=== PATIENT | female | born 1960 | race Caucasian/White ===

== ENCOUNTER 2020-08-29 11:46 | Emergency (ER) | payer OTHER, SELFPAY ==
[2020-08-29 11:50] VITALS: BP 158/85; PULSE 82; RESP 20; TEMP 36.4; O2SAT 100
--- NOTE | 2020-08-29 11:59 | ED.CHESTPAIN ---
HPI - Chest Pain General Chief Complaint: Chest Pain Stated Complaint: chest pain Time Seen by Provider: 08/29/20 11:55 Source: patient Mode of arrival: ambulatory Limitations: no limitations History of Present Illness HPI narrative: Renata Goldberg is a 60 yo female with a PMH of uncontrolled diabetes, obesity, HTN, smokes daily, comes to the express with 24-hour history of gastric reflux upon awakening, is nauseated and history of early cardiac deaths in her family Patient smokes 6 cigarettes a day had a recent A1c that showed her A1c had dropped but still was at 7.9. she does not check her blood sugar on a regular basis Related Data Home Medications Medication Instructions Recorded Confirmed atorvastatin 08/29/20 insulin lispro protamin-lispro SUBCUT 08/29/20 [Humalog Mix 75-25 KwikPen] linagliptin [Tradjenta] mg 08/29/20 sertraline mg 08/29/20 Allergies Allergy/AdvReac Type Severity Reaction Status Date / Time codeine Allergy Unknown Unknown Verified 08/29/20 13:15 Review of Systems Review of Systems: Narrative: CONSTITUTIONAL: Denies fever, chills, sweats. EYES: Denies visual changes, redness, discharge. ENT: Denies rhinorrhea, congestion, sore throat, otalgia. CARDIOVASCULAR epigastric pain, chest pain, palpitations, edema. RESPIRATORY: Denies dyspnea, wheezing, cough GASTROINTESTINAL: Denies abdominal pain, nausea, vomiting, diarrhea. GENITOURINARY: Denies dysuria, hematuria, abnormal discharge SKIN: Denies rash or itching. NEUROLOGIC: Denies numbness, or focal weakness. PSYCHIATRIC: Denies anxiety or depression. PMFSH Past Medical History Medical History Diabetes HTN (hypertension) Family History Family History Other Acute myocardial infarction Diabetes mellitus Heart disease Hypertension Social History Social History Smoking status: Current every day smoker Alcohol intake: never Comments My nurse Exam Narrative: Exam Narrative: GENERAL: This is a well-nourished, well-developed patient, in moderate distress. HEAD: normocephalic, atraumatic. EYES: Sclera clear/white. Vision is grossly intact. EARS: External ears normal,. Hearing grossly intact. NOSE: External nose normal without nasal discharge, nares without redness, no rhinorrhea. THROAT: Mucous membranes moist, posterior pharynx NECK: Neck supple, non-tender CARDIOVASCULAR: Regular rate and rhythm without murmurs, gallops, or rubs. RESPIRATORY: Clear to auscultation. Breath sounds equal bilaterally. No wheezes, rales, or rhonchi. GASTROINTESTINAL: Abdomen soft, non-tender, large pannus SKIN: warm, intact with no suspicious lesions or rash, good texture and turgor. NEURO: awake, alert, and oriented to person, place and time. There were no obvious focal neurologic abnormalities. Steady gait EXTREMITIES: Normal range of motion. BACK: Nontender without deformity Course Course Emergency Course: Patient comes to express care with 24-hour history of GERD-like symptoms and nausea has a family history of early , risk factors involved in uncontrolled diabetes hypertension and smoking Initial EKG showed nonspecific T wave abnormalities normal sinus rhythm otherwise with a rate of 76 no axis deviation Patient sent to [facility] for further evaluation Vital Signs Vital signs: Vital Signs Temperature 97.6 F 08/29/20 11:50 Pulse Rate 82 08/29/20 11:50 Respiratory Rate 20 08/29/20 11:50 Blood Pressure 158/85 H 08/29/20 11:50 Pulse Oximetry 100 08/29/20 11:50 Temperature 97.6 F 08/29/20 11:50 Pulse Rate 82 08/29/20 11:50 Respiratory Rate 20 08/29/20 11:50 Blood Pressure 158/85 H 08/29/20 11:50 Pulse Oximetry 100 08/29/20 11:50 MDM - Chest Pain Differential Diagnosis Differential diagnosis: Likely stable angina, un
--- NOTE | 2020-08-29 12:14 | ECG_ITS ---
Measurements Intervals [place] Rate: 78 P: 48 MS: 150 QRS: 11 QRSD: 89 T: 71 QT: 378 QTc: 431 Interpretive Statements SINUS RHYTHM BASELINE ARTIFACT- II, III, AVR, AVL, AVF, V6 NORMAL ECG Electronically Signed On 08-29-2020 15:09:23 [employer]AL INDU[employer] TEACHER by Oren Benitez D.O.
== END 2020-08-29 12:34 | disposition short-term general hospital (02) ==
PROVIDERS: Emergency Provider Nurse Practitioner; PCP Internal Medicine
DX: R07.89 Other chest pain (principal); E11.9 Type 2 diabetes mellitus without complications; I10 Essential (primary) hypertension; E66.9 Obesity, unspecified; F17.210 Nicotine dependence, cigarettes, uncomplicated
CPT/HCPCS: 93005; 99213; G0463

== ENCOUNTER 2020-08-29 12:52 | Emergency (ER) | payer OTHER, SELFPAY ==
[2020-08-29] VITALS (8 sets, daily range): BP systolic 157–183; BP diastolic 78–86; PULSE 66–78; RESP 18; O2SAT 95–99
--- NOTE | ~2020-08-29 | XR_ITS ---
EXAMINATION: XR chest 1V portable INDICATION: Chest pain TECHNIQUE: Portable AP chest at 1335 hours COMPARISON: 10/30/2015 FINDINGS: The lungs are free of acute opacities. There is no pleural effusion or pneumothorax. The ca rdiomediastinal silhouette is normal. IMPRESSION: 1. No acute cardiopulmonary abnormality. Reviewed, dictated and finalized at location A. [employer] TRUCK DRIVER
[2020-08-29 13:26] LABS: Basophils Absolute Auto 0.1 K/mm3 (0.0-0.1); Basophils Percent Auto 0.5 % (0.2-1.2); Eosinophils Absolute Auto 0.2 K/mm3 (0-0.3); Hematocrit 44.5 % (37.0-47.0); Hemoglobin 14.9 g/dL (12.0-15.0); Immature Granulocyte Absolute 0.04 K/mm3 (0.00-0.031); Immature Granulocyte Percent A 0.4 % (0-0.5); Lymphocytes Absolute Auto 2.49 K/mm3 (0.9-3.2); Lymphocytes Percent Auto 24.2 % (18.3-44.2); Mean Corpuscular HGB Conc 33.5 g/dl (32-36); Mean Corpuscular Hemoglobin 29.7 pg (26-34); Mean Corpuscular Volume 88.8 fl (80-100); Mean Platelet Volume 10.5 fl (7.4-10.4); Monocytes Absolute Auto 0.8 K/mm3 (0.1-0.6); Monocytes Percent Auto 7.7 % (2.6-8.5); Neutrophils Absolute Auto 6.7 K/mm3 (1.3-6.7); Neutrophils Percent Auto 65.2 % (45.5-73.1); Platelet Count Result 246 k/mm3 (150-375); Red Blood Count 5.01 M/mm3 (4.2-5.4); Red Cell Distribution Width 13.1 % (11.5-14.5); White Blood Count 10.3 K/mm3 (4.5-10.0)
[2020-08-29] MEDS: LIDOCAINE HCL 2% VISC SOLN 15 ML UDC 20 ML PO (13:26)
[2020-08-29] MEDS: MAG HYDROX/AL HYDROX/SIMETH 30 ML UDC PO (13:26)
[2020-08-29] MEDS: FAMOTIDINE 20 MG/2 ML VIAL IV PUSH (13:28)
[2020-08-29] MEDS: PANTOPRAZOLE SODIUM IV 40 MG VIAL IV PUSH (13:29)
[2020-08-29 13:37] LABS: Prothrombin Time 12.7 Seconds (11.1-14.7)
--- NOTE | 2020-08-29 13:37 | ECG_ITS ---
Measurements Intervals [place] Rate: 73 P: 40 [place]: 152 QRS: 11 QRSD: 82 T: 67 QT: 371 QTc: 410 Interpretive Statements SINUS RHYTHM EARLY PRECORDIAL R/S TRANSITION BORDERLINE ECG Electronically Signed On 08-29-2020 15:11:13 [employer]K [employer]OL[employer] INSTALLER by Oren Benitez D.O.
[2020-08-29 13:38] LABS: Partial Thromboplastin Time 25.4 SECONDS (22.3-36.8)
[2020-08-29 13:40] LABS: Alanine Aminotransferase 33 U/L (4-35); Albumin Level 4.3 g/dL (3.5-5.1); Alkaline Phosphatase 90 U/L (38-126); Anion Gap 8 mmol/L (8-16); Aspartate Amino Transferase 27 U/L (14-36); Bilirubin,Total 0.4 mg/dL (0.2-1.3); Blood Urea Nitrogen 10 mg/dL (7-17); Calcium 9.6 mg/dL (8.4-10.2); Carbon Dioxide 27 mmol/L (22-30); Chloride 104 mmol/L (98-107); Estimated Glomerular Filt Rate > 60; Glucose 171 mg/dL (65-105); Lipase 129 U/L (23-300); Potassium 4.1 mmol/L (3.4-5.0); Sodium 139 mmol/L (137-145)
[2020-08-29 13:53] LABS: NT Pro B Type Natriuretic Pept 84 PG/ML (5-100); Troponin I < 0.012 ng/mL (0.000-0.034)
--- NOTE | 2020-08-29 13:53 | ED.CHESTPAIN ---
HPI - Chest Pain General Chief Complaint: Chest Pain <CHRIS Philippe Last Filed: 08/29/20 17:32> Stated Complaint: chest pain <CHRIS Philippe Last Filed: 08/29/20 17:32> Time Seen by Provider: 08/29/20 12:59 <CHRIS Philippe Last Filed: 08/29/20 17:32> Source: patient <CHRIS Philippe Last Filed: 08/29/20 17:32> Mode of arrival: ambulatory <CHRIS Philippe Filed: 08/29/20 17:32> Limitations: no limitations <CHRIS Philippe Last Filed: 08/29/20 17:32> History of Present Illness HPI narrative: Patient is a 60-year-old female who presents to emergency department for evaluation of chest pain from urgent care at 10 AM this morning patient developed nausea GI upset with pain from the epigastrium up into the throat described as a burning pain. Patient notes that in the last week or more she has had 2 similar episodes that were self limited and resolved patient denies any chest pain does note she has slight heaviness of the chest denies URI symptoms or similar occurrence in the past and on arrival does not appear to be uncomfortable or in distress has not taken anything for her symptoms <CHRIS Philippe Last Filed: 08/29/20 17:32> Related Data Home Medications: Home Medications Medication Instructions Recorded Confirmed atorvastatin 08/29/20 insulin lispro protamin-lispro SUBCUT 08/29/20 [Humalog Mix 75-25 KwikPen] linagliptin [Tradjenta] mg 08/29/20 sertraline mg 08/29/20 <CHRIS Philippe Last Filed: 08/29/20 17:32> Allergies/Adverse Reactions: Allergies Allergy/AdvReac Type Severity Reaction Status Date / Time codeine Allergy Unknown Unknown Verified 08/29/20 13:15 <CHRIS Philippe Last Filed: 08/29/20 17:32> Review of Systems Review of Systems: All systems reviewed & are unremarkable except as noted in HPI and below <CHRIS Philippe Last Filed: 08/29/20 17:32> PMFSH Past Medical History Medical History: Medical History Diabetes HTN (hypertension) <Marvin Ahmadi PA-C - Last Filed: 08/29/20 17:32> Family History Family History: Family History Other Acute myocardial infarction Diabetes mellitus Heart disease Hypertension <Marvin Ahmadi PA-C - Last Filed: 08/29/20 17:32> Social History Social History: Social History Smoking status: Current every day smoker Alcohol intake: never <Marvin Ahmadi PA-C - Last Filed: 08/29/20 17:32> Exam Narrative: Exam Narrative: GENERAL: Well-appearing, obese, and in no acute distress. HEAD: Normocephalic, atraumatic. EYES: PERRLA and EOMI. ENT: Nares clear, no rhinorrhea or epistaxis. Mucous membranes moist. NECK: Supple. No adenopathy or masses. CHEST: Clear to auscultation. No respiratory distress. No wheezes rales or rhonchi HEART: Regular rate and rhythm. No murmur heard. Normal peripheral pulses. ABDOMEN: Soft, epigastric tenderness to palpation no rebound or guarding, nondistended, normal active bowel sounds. EXTREMITIES: Normal range of motion. No edema. SKIN: Warm, dry, no rash. NEURO: No focal deficits. Alert and oriented x3. PSYCH: Normal mood and affect. <Marvin Ahmadi PA-C - Last Filed: 08/29/20 17:32> Course Course Emergency Course: Patient in the room at this time will sign out AMA was advised to stay in hospital due to her high risk cardiac score patient 10 was advised to stay in hospital she knows she will follow with her primary care doctor and still would like to go home patient will also be given a PPI in case she is experiencing reflux symptoms patient currently is pain-free patient notes that she prefers to go home does not want to stay in hospital despite understanding that she
[2020-08-29 14:37] LABS: Add Urine Microscopic? NO; Appearance Urine Clear (Clear); Bilirubin Urine Negative (Negative); Blood Urine Negative (Negative); Color Urine Colorless (Yellow); Glucose Urine UA Negative (Negative); Ketones Urine Negative (Negative); Leukocyte Esterase Ur Negative LEU/UL (Negative); Nitrate Urine Negative (Negative); Protein Urine Negative (Negative); Specific Grav Ur 1.006 (1.001-1.035); Urobilinogen Urine Negative mg/dL (<2.0)
[2020-08-29] MEDS: NITROGLYCERIN OINTMENT 1 INCH DOSE 0.5 INCH TRANSDERM (15:24)
[2020-08-29 16:35] LABS: Troponin I < 0.012 ng/mL (0.000-0.034)
== END 2020-08-29 17:41 | disposition left against medical advice (07) ==
PROVIDERS: Emergency Medicine Emergency Medical Services; Emergency Provider General Practice; PCP Internal Medicine
DX: R07.9 Chest pain, unspecified (principal); E11.9 Type 2 diabetes mellitus without complications; I10 Essential (primary) hypertension; F17.200 Nicotine dependence, unspecified, uncomplicated; Z79.4 Long term (current) use of insulin; R94.31 Abnormal electrocardiogram [ECG] [EKG]
CPT/HCPCS: 36415; 71045; 80053; 81003; 83690; 83880; 84484; 85025; 85610; 85730; 93005; 96374; 96375; 99284; A9270; C9113

== ENCOUNTER 2021-01-03 11:02 | Outpatient (CLI) | payer OTHER, SELFPAY | END 2021-01-03 11:03 | disposition home or self-care (01) | LOC: ANHCOVIDVC 11:02 | PROVIDERS: PCP Internal Medicine | DX: Z23 Encounter for immunization (principal) | CPT/HCPCS: 0001A; 91300 ==

== ENCOUNTER 2021-01-24 09:53 | Outpatient (CLI) | payer OTHER, SELFPAY | END 2021-01-24 09:54 | disposition home or self-care (01) | LOC: ANHCOVIDVC 09:53 | PROVIDERS: PCP Internal Medicine | DX: Z23 Encounter for immunization (principal) | CPT/HCPCS: 0002A; 91300 ==

== ENCOUNTER 2024-01-26 06:57 | Inpatient (IN) | payer OTHER, SELFPAY ==
[2024-01-26] VITALS (31 sets, daily range): BP systolic 123–162; BP diastolic 50–84; PULSE 66–97; RESP 12–39; TEMP 36.2–36.8; O2SAT 96–100
--- NOTE | 2024-01-26 | ECHO_ITS ---
Patient Info Name: Renata Goldberg Age: 64 years : 1960 Gender: Female Ht: 66 in Wt: 249 lbs BSA: 2.35 m2 HR: 71 bpm BP: 123 / 64 mmHg Heart Rhythm: Sinus Rhythm Technical Quality: Good Exam Date: 01/26/2024 12:28 PM Exam Location: Echo Lab Patient Status: Inpatient Admit Date: 01/26/2024 Staff Ordering Physician: Evan Jones MD Information Systems Security Developer: Joanne Cee RDCS Attending Provider: Heriberto Whitlock MD Referring Physician: Karen LARSEN; Exam Type: CA echo dop color flow w con Study Info Indications - chest pain Complete two-dimensional, color flow and Doppler transthoracic echocardiogram is performed with contrast to opacify the left ventricle and to improve the deliniation of the left ventricle endocardial borders. Summary 1. Technically difficult study with limited views. Definity contrast enhancement administered. 2. Left ventricular chamber dimension is normal. 3. Left ventricular systolic function is hyperdynamic, estimated at >70%. 4. There is mildly increased left ventricular wall thickness. 5. The left ventricular diastolic function is grade II diastolic dysfunction. 6. The aortic valve is not well visualized. 7. There is no aortic valve stenosis. 8. There is no aortic valve regurgitation. 9. There is trace mitral valve regurgitation. 10. The mitral valve annulus is moderately calcified. 11. There is trace tricuspid valve regurgitation. 12. No pulmonary hypertension, estimated pulmonary arterial systolic pressure is 16 mmHg. Left Ventricle Left ventricular chamber dimension is normal. Left ventricular systolic function is hyperdynamic, estimated at >70%. There is mildly increased left ventricular wall thickness. The left ventricular diastolic function is grade II diastolic dysfunction. Technically difficult study with limited views. Definity contrast enhancement administered. Right Ventricle Right ventricular chamber dimension is normal. Right ventricular systolic function is normal. Left Atria Left atrial chamber dimension is normal. Right Atria Right atrial chamber dimension is normal. Aortic Valve The aortic valve is not well visualized. There is no aortic valve stenosis. There is no aortic valve regurgitation. Pulmonic Valve The pulmonic valve is not well visualized. Mitral Valve The mitral valve has thickened leaflets. There is trace mitral valve regurgitation. The mitral valve annulus is moderately calcified. Tricuspid Valve The tricuspid valve leaflets are normal. There is trace tricuspid valve regurgitation. No pulmonary hypertension, estimated pulmonary arterial systolic pressure is 16 mmHg. Pericardium/Pleural The pericardium appears normal. There is no pericardial effusion. Inferior Vena Cava Normal inferior vena cava with >50% collapse upon inspiration consistent with normal right atrial pressure, 5 mmHg. Aorta The aortic root size at the sinus of Valsalva is normal. There is mild aortic atherosclerosis. Left Ventricular Outflow Tract Name Value Normal LVOT 2D LVOT Diameter 2.14 cm LVOT Doppler LVOT Peak Gradient 5 mmHg LVOT Mean Gradient 3 mmHg LVOT VTI
--- NOTE | ~2024-01-26 | XR_ITS ---
XR chest 2V DATE: 01/26/2024 07:42 INDICATION: Chest discomfort, uneasiness. Nausea and vomiting. History of atrial fibrillation and [place]. TECHNIQUE: AP and lateral views COMPARISON: 08/29/2020 portable AP chest FINDINGS: Normal heart size. No hilar or mediastinal enlargement. No pulmonary infiltrate or consolid ation, pleural effusion or pulmonary vascular congestion or pneumothorax is detected. Degenerative spurring of the thoracic spine. IMPRESSION: No active cardiopulmonary disease Reviewed, dictated and finalized at location A.
--- NOTE | 2024-01-26 07:16 | ECG_ITS ---
Measurements Intervals [place] Rate: 91 P: 45 [place]: 141 QRS: 13 QRSD: 81 T: 81 QT: 355 QTc: 438 Interpretive Statements SINUS RHYTHM ST-T WAVE ABNORMALITY IN ANTEROLAT/HIGH LAT LEADS- CONSIDER ISCHEMIA ABNORMAL ECG COMPARED TO ECG 08/29/2020 13:01:47 ST-T WAVE ABNORMALITY NOW PRESENT Electronically Signed On 01-26-2024 7:40:43 CDT by Oren Benitez D.O.
[2024-01-26] MEDS: ASPIRIN 81 MG CHEWABLE TABLET 324 MG PO (07:42)
[2024-01-26 08:01] LABS: Basophils Absolute Auto 0.1 K/mm3 (0.0-0.1); Basophils Percent Auto 0.8 % (0.2-1.2); Eosinophils Absolute Auto 0.2 K/mm3 (0-0.3); Hematocrit 46.4 % (37.0-47.0); Immature Granulocyte Absolute 0.02 K/mm3 (0.00-0.031); Immature Granulocyte Percent A 0.3 % (0-0.5); Lymphocytes Absolute Auto 1.47 K/mm3 (0.9-3.2); Lymphocytes Percent Auto 18.9 % (18.3-44.2); Mean Corpuscular HGB Conc 32.3 g/dl (32-36); Mean Corpuscular Hemoglobin 29.8 pg (26-34); Mean Corpuscular Volume 92.1 fl (80-100); Mean Platelet Volume 10.5 fl (7.4-10.4); Monocytes Absolute Auto 0.7 K/mm3 (0.1-0.6); Monocytes Percent Auto 8.3 % (2.6-8.5); Neutrophils Absolute Auto 5.4 K/mm3 (1.3-6.7); Neutrophils Percent Auto 68.7 % (45.5-73.1); Platelet Count Result 210 k/mm3 (150-375); Red Blood Count 5.04 M/mm3 (4.2-5.4); Red Cell Distribution Width 12.8 % (11.5-14.5); White Blood Count 7.8 K/mm3 (4.5-10.0)
[2024-01-26 08:05] LABS: Alanine Aminotransferase 34 U/L (6-35); Albumin Level 4.2 g/dL (3.5-5.1); Alkaline Phosphatase 106 U/L (38-126); Anion Gap 5 mmol/L (4-12); Aspartate Amino Transferase 29 U/L (14-36); Bilirubin,Total 0.4 mg/dL (0.2-1.3); Blood Urea Nitrogen 16 mg/dL (7-17); Calcium 9.9 mg/dL (8.4-10.2); Carbon Dioxide 27 mmol/L (22-30); Chloride 106 mmol/L (98-107); Estimated CRCL calculation 92 ml/min; Estimated Glomerular Filt Rate > 60; Glucose 261 mg/dL (65-110); Lipase 180 U/L (23-300); Potassium 4.3 mmol/L (3.4-5.0); Sodium 138 mmol/L (137-145)
[2024-01-26 08:20] LABS: Troponin I 0.214 ng/mL (0.000-0.034)
[2024-01-26 08:30] LABS: Prothrombin Time 13.3 Seconds (11.1-14.7)
[2024-01-26 08:31] LABS: Partial Thromboplastin Time 26.4 Seconds (22.3-36.8)
[2024-01-26] MEDS: HYDROcodone/acetaminophen (*CRX) 5-325 MG TABLET 1 TAB PO ×2 (09:08→21:05)
[2024-01-26] MEDS: HEPARIN SODIUM 5,000 UNITS/ML VIAL 4000 UNITS IV PUSH ×2 (09:08→15:39)
[2024-01-26] MEDS: HEPARIN SOD/D5W 100 UNITS/ML 25,000 UNITS/250 ML BAG 10 UNITS IV CONT (09:15)
--- NOTE | 2024-01-26 09:32 | ECG_ITS ---
Measurements Intervals [place] Rate: 79 P: 35 [place]: 149 QRS: 13 QRSD: 82 T: 84 QT: 386 QTc: 444 Interpretive Statements SINUS RHYTHM LEFT VENTRICULAR HYPERTROPHY WITH ST-T CHANGE BORDERLINE ECG COMPARED TO ECG 01/26/2024 07:04:49 NO SIGNIFICANT CHANGES Electronically Signed On 01-26-2024 16:37:33 CDT by Oren Benitez D.O.
[2024-01-26 10:44] LABS: Troponin I 0.812 ng/mL (0.000-0.034)
--- NOTE | 2024-01-26 11:39 | PM.CNCAR ---
Assessment and Plan Assessment and plan (1) SVT (supraventricular tachycardia): Code(s): I47.10 - Supraventricular tachycardia, unspecified Status: Acute Assessment and Plan: Documentation of arrhythmia presentation is not available unfortunately. Given description of rapid arrhythmia terminated with Valsalva 249 beats per minute SVT highly likely. Unfortunately this cannot be confirmed at present but patient reports a longstanding history of intermittent SVT as well terminated with adenosine. Currently in sinus rhythm. Initiate Toprol XL 25 mg daily for suppression. Discussed referral to electrophysiology as an outpatient as he services are not available at this institution to consider ablation and antiarrhythmic therapy as appropriate. Check TSH. Electrolytes stable. -2D echocardiogram to assess LV function, wall motion abnormalities, valve pathology, pulmonary pressures in chamber size. Recommendation to follow after review. -apnea link overnight to screen for obstructive sleep apnea which may increased risk for recurrence and difficulty management. -continue telemetry. (2) NSTEMI (non-ST elevated myocardial infarction): Code(s): I21.4 - Non-ST elevation (NSTEMI) myocardial infarction Status: Acute Assessment and Plan: Patient presents with chest discomfort however setting of 1 hour sustained very rapid presumed SVT 249 beats per minute with mild troponin elevation with upward trend and ECG with ischemic changes with diffuse ST depressions. We discussed at length pathophysiology involved and that her symptoms and clinical presentation may all be related to demand ischemia due to sustained very rapid arrhythmia versus underlying obstructive CAD particularly given risk factors of hypertension, family history, and hyperlipidemia along with tobacco abuse. Discussed it is very difficult to discern which I agree contributor as it is also possible she could have had acute coronary event which exacerbated tachyarrhythmia but was not precipitating issue. Nonetheless, I recommend management for both. Resume atorvastatin 40 mg at bedtime, aspirin 81 mg daily and continue heparin infusion. We will review 2D echocardiogram available. Further recommendation to follow based on troponin trend, patient symptoms/clinical status, ECG, and echocardiogram results. We discussed ischemic workup invasive versus noninvasive. Recommendation to follow in this regard. All questions answered to her satisfaction. She was in agreement with the plan of care. (3) HTN (hypertension): Code(s): I10 - Essential (primary) hypertension Status: Acute Assessment and Plan: BP significantly elevated. Add losartan 25 mg daily. Goal BP less than 130/80 mm Hg. (4) Diabetes: Code(s): E11.9 - Type 2 diabetes mellitus without complications Status: Acute Assessment and Plan: Management per primary service. (5) Tobacco abuse: Code(s): Z72.0 - Tobacco use Status: Acute Assessment and Plan: Smoking cessation counseling performed. Patient verbalized understanding and agreed. History of Present Illness History of Present Illness Consult date/time: Date of service: 01/26/24 11:39 Requesting physician: Heriberto Whitlock MD Consult reason: chest pain (Elevated troponin) and Other (SVT) Reason For Visit: SVT/ Elevated Trop/ST changes Narrative: Patient is a very pleasant 64-year-old female with past medical history significant for presumed recurrent SVT, depression, type 2 diabetes mellitus, hyperlipidemia, tobacco abuse, obesity who presented emergency department after waking with a rapid heart rate chest discomfort, nausea and general sense of not feeling well. Patient states she could feel her heart fluttering beating quickly and began to present to the ER with family then turned back to the house so she had episode of diarrhea and felt nauseous and vomited proximally 4 times. They the
--- NOTE | 2024-01-26 11:57 | ADMGEN ---
This patient, Renata Goldberg, was admitted to IMU Room 209-. Patient/family oriented to hospital policies and general routines including ID bracelet, bed and alarms, visiting hours, pain management, procedures, bathroom and other care routines, personal items, smoking policy, room service/diet, and visiting hours. Information on how to activate the Rapid Response Team has been discussed. Patient/Family are encouraged to report perceived risks to care and to ask questions if they do not understand what they are told or what they should do.
[2024-01-26 12:16] LABS: Glucose Point of Care 214 mg/dl (65-105)
[2024-01-26] MEDS: PERFLUTREN LIPID MICROSPHERES 1.5 ML VIAL DILUTED TO 10 ML TOTAL VOLUME IV PUSH (12:30)
--- NOTE | 2024-01-26 13:15 | ECG_ITS ---
Measurements Intervals [place] Rate: 69 P: 44 [place]: 151 QRS: 17 QRSD: 82 T: 105 QT: 394 QTc: 422 Interpretive Statements SINUS RHYTHM LEFT VENTRICULAR HYPERTROPHY WITH ST-T CHANGE BORDERLINE ST ABNORMALITY- ANTERIOR LEADS BORDERLINE ECG COMPARED TO ECG 01/26/2024 09:56:44 NO SIGNIFICANT CHANGES Electronically Signed On 01-26-2024 16:57:01 CDT by Oren Benitez D.O.
--- NOTE | 2024-01-26 13:28 | PM.IMHP ---
H&P: HPI History of Present Illness Date/Time: 01/26/24 13:28 Chief Complaint: Chest Pain, N/V Narrative: 64 y/o F presents here with chest pain, nausea, and vomiting with PMH of intermittent SVT, DM, depression, tobacco use, HLD, obesity, and HTN. Patient presents here with chest pain, nausea, vomiting, and GERD-like symptoms. Patient woke this morning around [id number] with palpitations/heart racing. Experienced associated chest discomfort, nausea, diarrhea, and general malaise. Patient initially was coming by private vehicle but had to turn around and go back home due to diarrhea and vomiting. EMS was then called. Upon their arrival, patient's HR was found to be in the 240's and appeared as SVT on their monitor. EMS helped patient to perform a Valsalva maneuver (bearing down) and patient was able to convert back in NSR. Symptoms lasted for approximately 1 hour in total. Patient has history of SVT with 1st episode when she was 20 years old and last long episode was 15 years ago. Had 5 year stretch where it was occurring yearly and had to be seen in the ED where she was treated with adenosine IV. Has had some short lived episodes of palpitations, would last more or less around 30 seconds, and would resolve spontaneously. Patient does not follow with a lodge attendant. Caffeine intake is approximated around 4 cups of coffee daily and 1 can of diet caffeinated soda. No prescription stimulants. No drug use. Currently reporting fatigue, typically feels tired after her SVT episodes and from getting up so early. No recurrent or current chest pain, SOB, or pain that is a deviation from her baseline. Initial VS at presentation: 97.1 F, HR 92, RR 16, 147/79, and 98% on RA. ED workup showed: no leukocytosis, no anemia, creatinine 0.7, and glucose 261. CXR showed no active cardiopulmonary disease. EKG showed sinus rhythm, ST T-wave abnormality in anterolateral/high rates consider ischemia. When compared to EKG done on 08/29/2020, ST-T-wave abnormalities not present. Review of Systems Review of Systems: All systems reviewed & are unremarkable except as noted in HPI and below PMFSH Past Medical History Medical History (Updated 01/26/24 @ 16:[address] MD) Diabetes HTN (hypertension) not currently on medications Insomnia Major depressive disorder, single episode, unspecified Polyosteoarthritis, unspecified SVT (supraventricular tachycardia) Tobacco abuse Vitamin D deficiency Family History Family History Other Acute myocardial infarction Diabetes mellitus Heart disease Hypertension Social History Social History Smoking status: Current every day smoker Alcohol intake: never Substance use: never Do You Feel Safe in your Home?: Yes Lack of Transportation: No Lack of Food: Never True Current Housing: I Have Housing Concerned About Future Housing: No Difficulty Paying Gas/Electric Bills: No Difficulty Paying for Meds: No Currently Unemployed: No Education: High School Diploma/GED Difficulty w/ Childcare or Family Care: No Spiritual care concerns: No Meds Home Medications and Allergies Home Medications Medication Instructions Recorded Confirmed Type insulin lispro protamine-lispro 54 unit subcut BID 08/29/20 01/26/24 History 100 unit/mL (75-25) subcutaneous pen (Humalog Mix 75-25 KwikPen) sertraline 100 mg tablet 150 mg PO DAILY 08/29/20 01/26/24 History atorvastatin 40 mg tablet 40 mg PO DAILY 01/26/24 01/26/24 History celecoxib 200 mg capsule 200 mg PO DAILY 01/26/24 01/26/24 History semaglutide 0.25 mg or 0.5 mg (2 0.5 mg subcut WEEKLY 01/26/24 01/26/24 History mg/3 mL) subcutaneous pen injector (Ozempic) tramadol 50 mg tablet 50 mg PO Q6H PRN Pain 01/26/24 01/26/24 History Allergies Allergy/AdvReac Type Severity Reaction Status Date / Time chinedu Brumfield
[2024-01-26 13:39] LABS: Prothrombin Time 13.7 Seconds (11.1-14.7)
[2024-01-26 13:40] LABS: Partial Thromboplastin Time 46.6 Seconds (22.3-36.8)
--- NOTE | 2024-01-26 13:46 | IVDEFINITY ---
Prior to administration of IV Definity the patient was educated on the risks and benefits of the imaging enhancing agent including potential adverse side effects. The patient verbalized understanding. Allergies were verified. No exclusion criteria were identified and at least one of the following inclusion criteria were met: 1) physician request, 2) patient technically difficult to image (per the [place] [employer]ocardi[employer] guidelines of two or more segments not discernable within the apical view), or 3) questionable left ventricular function. ?
[2024-01-26] MEDS: METOPROLOL SUCCINATE EXT REL 25 MG TABCR PO (14:24)
[2024-01-26 15:24] LABS: Partial Thromboplastin Time 48.5 Seconds (22.3-36.8)
--- NOTE | 2024-01-26 15:56 | ED.CHESTPAIN ---
HPI - Chest Pain General Chief Complaint: Chest Pain Stated Complaint: n/v, chest pain Time Seen by Provider: 01/26/24 07:43 History of Present Illness HPI narrative: Patient presents here after converted episode of SVT, EMS had been called to her home after she had nausea vomiting, and they found her with heart rate over 200, which did thankfully convert with vagal maneuvers. Patient at this time is denying complaints she states that she stayed get them all the time 20 years ago, which had required multiple interventions including cardioversion and medications, and she will have a funny sensation almost daily or every other day but usually it goes away except for today. Related Data Home Medications Medication Instructions Recorded Confirmed insulin lispro protamine-lispro subcut 08/29/20 100 unit/mL (75-25) subcutaneous pen (Humalog Mix 75-25 KwikPen) sertraline 100 mg tablet 150 mg PO DAILY 08/29/20 01/26/24 atorvastatin 40 mg tablet 40 mg PO DAILY 01/26/24 01/26/24 celecoxib 200 mg capsule 200 mg PO DAILY 01/26/24 01/26/24 semaglutide 0.25 mg or 0.5 mg (2 0.5 mg subcut WEEKLY 01/26/24 01/26/24 mg/3 mL) subcutaneous pen injector (Ozempic) tramadol 50 mg tablet 50 mg PO Q6H PRN Pain 01/26/24 01/26/24 Allergies Allergy/AdvReac Type Severity Reaction Status Date / Time codeine Allergy Unknown Unknown Verified 01/26/24 07:13 Review of Systems Review of Systems: All systems reviewed & are unremarkable except as noted in HPI and below PMFSH Past Medical History Medical History (Updated 01/26/24 @ 16:[address] MD) Diabetes HTN (hypertension) not currently on medications Insomnia Major depressive disorder, single episode, unspecified Polyosteoarthritis, unspecified SVT (supraventricular tachycardia) Tobacco abuse Vitamin D deficiency Family History Family History Other Acute myocardial infarction Diabetes mellitus Heart disease Hypertension Social History Social History Smoking status: Current every day smoker Alcohol intake: never Substance use: never Do You Feel Safe in your Home?: Yes Lack of Transportation: No Lack of Food: Never True Current Housing: I Have Housing Concerned About Future Housing: No Difficulty Paying Gas/Electric Bills: No Difficulty Paying for Meds: No Currently Unemployed: No Education: High School Diploma/GED Difficulty w/ Childcare or Family Care: No Spiritual care concerns: No Exam Narrative: EXAMINATION OF ORGAN SYSTEMS/BODY AREAS: Constitutional: Vital signs per nursing GENERAL:[No acute distress, non-toxic appearing.] HEAD: Normal with no signs of head trauma. EYES: EOMI, conjunctiva normal ENT: Hearing grossly intact LUNGS: Nonlabored breathing. HEART: [Regular rate and rhythm] ABD: [Soft], [nontender to palpation] EXT: Normal range of motion SKIN: [No rashes or lesions.] NEURO: [Alert and oriented x 3. No gross focal sensory or strength deficits.] PSYCH: Normal affect Course Vital Signs Vital signs: Vital Signs Temperature 97.1 F L 01/26/24 06:59 Pulse Rate 92 01/26/24 06:59 Respiratory Rate 16 01/26/24 06:59 Blood Pressure 147/79 H 01/26/24 06:59 Pulse Oximetry 98 01/26/24 06:59 Oxygen Delivery Room Air 01/26/24 06:59 Temperature 97.8 F 01/26/24 16:00 Pulse Rate 78 01/26/24 16:00 Respiratory Rate 16 01/26/24 16:00 Blood Pressure 135/63 01/26/24 16:00 Pulse Oximetry 97 01/26/24 16:00 Oxygen Delivery Room Air 01/26/24 12:00 MDM - Chest Pain MDM Narrative Medical decision making narrative: 1) Differential diagnosis: SVT, ACS, afib with rvr 2) Comorbidities: DM, HTN, prior SVT 3) External notes reviewed: prior H&P 4) History sources independently obtained from: EMS, pt's daughter 5) Discussion of management with: rn social services,
[2024-01-26 15:59] LABS: Glucose Point of Care 321 mg/dl (65-105)
[2024-01-26 16:44] LABS: Glucose Point of Care 281 mg/dl (65-105)
[2024-01-26] MEDS: INSULIN ASPART (*BKC) 100 UNITS/ML SUB-Q ×2 (17:28→20:06)
[2024-01-26 20:06] LABS: Glucose Point of Care 242 mg/dl (65-105)
[2024-01-26] MEDS: MELATONIN 3 MG TABLET PO (21:05)
[2024-01-26 22:08] LABS: Partial Thromboplastin Time 76.2 Seconds (22.3-36.8)
[2024-01-26 22:57] LABS: Influenza A QL RT-PCR Negative (Negative); Influenza B QL RT-PCR Negative (Negative); RSV RNA, RT-PCR Negative (Negative); SARS-CoV-2 RNA PCR Negative (Negative)
[2024-01-27] VITALS (16 sets, daily range): BP systolic 120–146; BP diastolic 48–79; PULSE 64–86; RESP 12–20; TEMP 36.4–36.8; O2SAT 95–100
[2024-01-27 04:49] LABS: Basophils Absolute Auto 0.1 K/mm3 (0.0-0.1); Basophils Percent Auto 0.7 % (0.2-1.2); Eosinophils Absolute Auto 0.3 K/mm3 (0-0.3); Eosinophils Percent Auto 3.2 % (0-4.4); Hematocrit 42.6 % (37.0-47.0); Hemoglobin 13.7 g/dL (12.0-15.0); Immature Granulocyte Absolute 0.03 K/mm3 (0.00-0.031); Immature Granulocyte Percent A 0.3 % (0-0.5); Lymphocytes Absolute Auto 2.97 K/mm3 (0.9-3.2); Lymphocytes Percent Auto 34.2 % (18.3-44.2); Mean Corpuscular HGB Conc 32.2 g/dl (32-36); Mean Corpuscular Volume 93.2 fl (80-100); Mean Platelet Volume 11.1 fl (7.4-10.4); Monocytes Absolute Auto 0.8 K/mm3 (0.1-0.6); Monocytes Percent Auto 8.7 % (2.6-8.5); Neutrophils Absolute Auto 4.6 K/mm3 (1.3-6.7); Neutrophils Percent Auto 52.9 % (45.5-73.1); Platelet Count Result 194 k/mm3 (150-375); Red Blood Count 4.57 M/mm3 (4.2-5.4); Red Cell Distribution Width 12.8 % (11.5-14.5); White Blood Count 8.7 K/mm3 (4.5-10.0)
[2024-01-27 05:02] LABS: Partial Thromboplastin Time 64.5 Seconds (22.3-36.8)
[2024-01-27 05:04] LABS: Alanine Aminotransferase 30 U/L (6-35); Albumin Level 3.8 g/dL (3.5-5.1); Alkaline Phosphatase 84 U/L (38-126); Anion Gap 4 mmol/L (4-12); Aspartate Amino Transferase 28 U/L (14-36); Bilirubin,Total 0.5 mg/dL (0.2-1.3); Blood Urea Nitrogen 15 mg/dL (7-17); Calcium 9.5 mg/dL (8.4-10.2); Carbon Dioxide 28 mmol/L (22-30); Chloride 106 mmol/L (98-107); Cholesterol 172 mg/dL (0-200); Estimated CRCL calculation 92 ml/min; Estimated Glomerular Filt Rate > 60; Glucose 213 mg/dL (65-110); HDL Direct 60 mg/dL; Sodium 138 mmol/L (137-145); Triglycerides 149 mg/dL (<150)
[2024-01-27] MEDS: HEPARIN SODIUM 5,000 UNITS/ML VIAL 3000 UNITS IV PUSH ×2 (05:13→19:30)
[2024-01-27 05:15] LABS: LDL Cholesterol Direct 91 mg/dL
[2024-01-27] MEDS: HEPARIN SOD/D5W 100 UNITS/ML 25,000 UNITS/250 ML BAG 15 UNITS IV CONT ×2 (05:17→22:45)
[2024-01-27 05:18] LABS: Hemoglobin A1C 8.8 % (<5.7)
[2024-01-27] MEDS: HYDROcodone/acetaminophen (*CRX) 5-325 MG TABLET 1 TAB PO ×2 (06:12→20:50)
--- NOTE | 2024-01-27 08:00 | ECG_ITS ---
Measurements Intervals Outlook Rate: 68 P: 40 MO: 152 QRS: 20 QRSD: 82 T: 77 QT: 393 QTc: 419 Interpretive Statements SINUS RHYTHM NONSPECIFIC ST-T WAVE ABNORMALITY- HIGH LATERAL LEADS BASELINE ARTIFACT- I, III, AVL BORDERLINE ECG COMPARED TO ECG 01/26/2024 13:24:49 NO SIGNIFICANT CHANGES Electronically Signed On 01-27-2024 10:57:08 CDT by Oren Benitez D.O.
[2024-01-27 08:16] LABS: Glucose Point of Care 240 mg/dl (65-105)
[2024-01-27] MEDS: METOPROLOL SUCCINATE EXT REL 25 MG TABCR PO (08:55)
[2024-01-27] MEDS: PANTOPRAZOLE 40 MG TABLET PO (08:55)
[2024-01-27] MEDS: SERTRALINE HCL 50 MG TABLET 150 MG PO (08:55)
[2024-01-27] MEDS: ASPIRIN 81 MG ENTERIC TABLET PO (08:55)
[2024-01-27] MEDS: ATORVASTATIN 40 MG TABLET PO (08:55)
[2024-01-27] MEDS: INSULIN ASPART (*BKC) 100 UNITS/ML SUB-Q ×4 (08:56→20:47)
--- NOTE | 2024-01-27 10:34 | PM.IMPN ---
Progress Note: A&P Assessment and Plan (1) SVT (supraventricular tachycardia): Code(s): I47.10 - Supraventricular tachycardia, unspecified Status: Acute Assessment and Plan: - EKG, initial: Sinus rhythm, ST-T-wave abnormality in anterolateral leads and high lateral leads consider ischemia, abnormal EKG. When compared to EKG done on 08/29/2020, ST-T-wave abnormality now present. - cardiology consulted, Karen PORTER Provided the following recs: Start metoprolol XL 25 mg daily for suppression Referral for electrophysiology outpatient for possible ablation or antiarrhythmic therapy Check TSH Check echo ApneaLink overnight to screen for DEEDEE Continue telemetry - started on heparin gtt - echo, 01/26 LV normal dimension, mildly increased ventricular wall thickness, systolic function hyperdynamic, estimated EF >70% LV diastolic dysfunction grade 2 AV not well visualized No AV stenosis or regurgitation Trace MV regurgitation and annulus moderately calcified Trace TV regurgitation No pulmonary hypertension - no previous stress test on file - telemetry monitoring (2) NSTEMI (non-ST elevated myocardial infarction): Code(s): I21.4 - Non-ST elevation (NSTEMI) myocardial infarction Status: Acute Assessment and Plan: - EKG, initial: Sinus rhythm, ST-T-wave abnormality in anterolateral leads and high lateral leads consider ischemia, abnormal EKG. When compared to EKG done on 08/29/2020, ST-T-wave abnormality now present. - EKG, repeat (1): Sinus rhythm, LV hypertrophy with ST-T change. When compared to EKG done earlier today, there are no significant changes. - EKG, repeat (2): Sinus rhythm, LV hypertrophy with ST-T change, borderline ST abnormality anterior leads. - CXR: No active cardiopulmonary disease - Troponin: 0.214 -> 0.812 -> 1.720, repeat in AM - ASA given in ED, started on heparin - SL nitro PRN - cardiology consulted, Karen PORTER Provided the following recs: Demand ischemia verses underlying obstructive CAD Continue management for SVT and CAD Resume atorvastatin 40 mg, ASA daily, continue heparin gtt Review echo Further recommendations based off of troponin trend, patient's symptoms, EKG, and echo - started on heparin gtt - lipid panel ordered, continued atorvastatin 40 mg - see echo results above - NPO at midnight - telemetry monitoring (3) Diabetes: Code(s): E11.9 - Type 2 diabetes mellitus without complications Status: Acute Assessment and Plan: - glucose has been elevated, unable to start lispro until later in the evening due to patient not knowing dose that she actually takes home - hypoglycemia protocol - POC blood glucose ACHS - home medication - hold Ozempic (NF, takes on Mon), patient does not know lispro dose. states she turns it (the dial) and shoots it . will resume as prescribed, lispro 54 units b.i.d. - correct regimen ordered - high dose TIDWM and HS. starting steroids. - A1C ordered, no previous on file - music educator consulted - had lengthy discussion about importance of adherence to medications and how they are prescribed, discussed risks of uncontrolled blood sugars (4) Tobacco abuse: Code(s): Z72.0 - Tobacco use Status: Acute Assessment and Plan: - everyday smoker - counseled on cessation, in state of preparation/determination. Would like to attempt cessation. - will hold on starting nicotine patches until further cardiac workup is completed Plan Patient here with recurrent SVT, able to Valsalva back into NSR. Cardiology consulted and provider recommendations, see note. Uptrending troponin has unclear etiology at this time, ischemia vs CAD. No recurrent chest pain or palpitations. Heparin infusing. Diet: heart healthy GI Prophylaxis: Not currently indicated DVT Prophylaxis: heparin gtt Lines: peripheral Code Status: Full Code Subjective Date/time seen: 01/27/24 10:34 Objec
--- NOTE | 2024-01-27 10:36 | P.PNIM_ITS ---
Progress Note: A&P Assessment and Plan (1) NSTEMI (non-ST elevated myocardial infarction): Code(s): I21.4 - Non-ST elevation (NSTEMI) myocardial infarction Status: Acute (2) SVT (supraventricular tachycardia): Code(s): I47.10 - Supraventricular tachycardia, unspecified Status: Acute (3) HTN (hypertension): Code(s): I10 - Essential (primary) hypertension Status: Acute (4) Diabetes: Code(s): E11.9 - Type 2 diabetes mellitus without complications Status: Acute (5) Tobacco abuse: Code(s): Z72.0 - Tobacco use Status: Acute Plan (1) SVT (supraventricular tachycardia): ?Code(s): I47.10 - Supraventricular tachycardia, unspecified ?Status:?Acute ?Assessment and Plan: - EKG, initial:? Sinus rhythm, ST-T-wave abnormality in anterolateral leads and high lateral leads consider ischemia, abnormal EKG.? When compared to EKG done on 08/29/2020, ST-T-wave abnormality now present. - cardiology consulted, Karen ASTUDILLO. Provided the following recs: Start metoprolol XL 25 mg daily for suppression Referral for electrophysiology outpatient for possible ablation or antiarrhythmic therapy Check TSH Check echo ApneaLink overnight to screen for DEEDEE Continue telemetry - started on heparin gtt - echo, 01/26 LV normal dimension, mildly increased ventricular wall thickness, systolic function hyperdynamic, estimated EF >70% LV diastolic dysfunction grade 2 AV not well visualized No AV stenosis or regurgitation Trace MV regurgitation and annulus moderately calcified Trace TV regurgitation No pulmonary hypertension - no previous stress test on file - telemetry monitoring (2) NSTEMI (non-ST elevated myocardial infarction): ?Code(s): I21.4 - Non-ST elevation (NSTEMI) myocardial infarction ?Status:?Acute ?Assessment and Plan: - EKG, initial:? Sinus rhythm, ST-T-wave abnormality in anterolateral leads and high lateral leads consider ischemia, abnormal EKG.? When compared to EKG done on 08/29/2020, ST-T-wave abnormality now present. - EKG, repeat (1):? Sinus rhythm, LV hypertrophy with ST-T change.? When compared to EKG done earlier today, there are no significant changes. - EKG, repeat (2):? Sinus rhythm, LV hypertrophy with ST-T change, borderline ST abnormality anterior leads. - CXR:? No active cardiopulmonary disease - Troponin: 0.214 -> 0.812 -> 1.720, repeat in AM - ASA given in ED, started on heparin - SL nitro PRN - cardiology consulted, Karen ASTUDILLO. Provided the following recs: Demand ischemia verses underlying obstructive CAD Continue management for SVT and CAD Resume atorvastatin 40 mg, ASA daily, continue heparin gtt Review echo Further recommendations based off of troponin trend, patient's symptoms, EKG, and echo - started on heparin gtt - lipid panel ordered, continued atorvastatin 40 mg - see echo results above - NPO at midnight - telemetry monitoring echo revealed ? 1. Technically difficult study with limited views.? Definity contrast enhancement administered. ? 2. Left ventricular chamber dimension is normal. ? 3. Left ventricular systolic function is hyperdynamic, estimated at >70%. ? 4. There is mildly increased left ventricular wall thickness. ? 5. The left ventricular diastolic function is grade II diastolic dysfunction. ? 6. The aortic valve is not well visualized. ? 7. There is no aortic valve stenosis. ? 8. There is no aortic valve regurgitation. ? 9. There is trace mitral valve regurgitation. ? 10. The mitral valv
[2024-01-27 11:27] LABS: Partial Thromboplastin Time 119.7 Seconds (22.3-36.8)
--- NOTE | 2024-01-27 11:44 | PM.PNCARD ---
Progress Note: A&P Assessment and Plan (1) NSTEMI (non-ST elevated myocardial infarction): Code(s): I21.4 - Non-ST elevation (NSTEMI) myocardial infarction Status: Acute Assessment and Plan: Patient presents with chest discomfort however setting of 1 hour sustained very rapid presumed SVT 249 beats per minute with mild troponin elevation with upward trend and ECG with ischemic changes with diffuse ST depressions. We discussed at length pathophysiology involved and that her symptoms and clinical presentation may all be related to demand ischemia due to sustained very rapid arrhythmia versus underlying obstructive CAD particularly given risk factors of hypertension, family history, and hyperlipidemia along with tobacco abuse. Discussed it is very difficult to discern which I agree contributor as it is also possible she could have had acute coronary event which exacerbated tachyarrhythmia but was not precipitating issue. Nonetheless, I recommend management for both. Resume atorvastatin 40 mg at bedtime, aspirin 81 mg daily and continue heparin infusion. NPO after midnight permissive angiography for delineation of coronary anatomy given significant troponin elevation somewhat out of proportion that would be expected secondary to demand ischemia in the absence of underlying CAD. Patient also reports preceding unexplained fatigue prior to admission raising concern for obstructive CAD. Discussed at length. Discussed risks, benefits and alternatives including but not limited to stroke, bleeding, myocardial infarction, , and or infection. She agrees to proceed. Further recommendation to follow. Discussed potential intervention and/or stent implantation. (2) SVT (supraventricular tachycardia): Code(s): I47.10 - Supraventricular tachycardia, unspecified Status: Acute Assessment and Plan: Documentation of arrhythmia presentation is not available unfortunately. Given description of rapid arrhythmia terminated with Valsalva 249 beats per minute SVT highly likely. Unfortunately this cannot be confirmed at present but patient reports a longstanding history of intermittent SVT as well terminated with adenosine. Currently in sinus rhythm. Initiate Toprol XL 25 mg daily for suppression. Discussed referral to electrophysiology as an outpatient as he services are not available at this institution to consider ablation and antiarrhythmic therapy as appropriate. Check TSH. Electrolytes stable. -2D echocardiogram to assess LV function, wall motion abnormalities, valve pathology, pulmonary pressures in chamber size. Recommendation to follow after review. -apnea link overnight to screen for obstructive sleep apnea which may increased risk for recurrence and difficulty management. -continue telemetry. (3) HTN (hypertension): Code(s): I10 - Essential (primary) hypertension Status: Acute Assessment and Plan: BP significantly elevated. Add losartan 25 mg daily. Goal BP less than 130/80 mm Hg. (4) Diabetes: Code(s): E11.9 - Type 2 diabetes mellitus without complications Status: Acute Assessment and Plan: Management per primary service. (5) Tobacco abuse: Code(s): Z72.0 - Tobacco use Status: Acute Assessment and Plan: Smoking cessation counseling performed. Patient verbalized understanding and agreed. Subjective Date/time seen: Date of service: 01/27/24 11:44 Interval history: Follow-up for SVT, elevated troponin, chest pain Patient feels better this morning. Still somewhat fatigued but no chest pain, palpitation. No recurrent SVT on telemetry overnight. Breathing stable. Review of Systems Review of Systems: Remainder of the review of systems is otherwise negative aside from that noted in the HPI. All systems reviewed & are unremarkable except as noted in HPI and below Constitutional: Constitutional: Reports as per HPI and Reports no additional const
[2024-01-27 11:48] LABS: Glucose Point of Care 257 mg/dl (65-105)
[2024-01-27] MEDS: INSULIN HUMAN ISOPHAN/REGULAR 70/30 (*BKC) 100 UNITS/ML 43 UNITS SUB-Q ×2 (12:30→17:39)
[2024-01-27 16:30] LABS: Glucose Point of Care 291 mg/dl (65-105)
[2024-01-27 19:10] LABS: Partial Thromboplastin Time 69.3 Seconds (22.3-36.8)
[2024-01-27 20:50] LABS: Glucose Point of Care 259 mg/dl (65-105)
[2024-01-27] MEDS: MELATONIN 3 MG TABLET PO (20:50)
[2024-01-27] MEDS: INSULIN GLARGINE (*BKC) 100 UNITS/ML 23 UNITS SUB-Q (20:53)
[2024-01-27] MEDS: ONDANSETRON INJ 4 MG/2 ML VIAL IV PUSH (23:18)
[2024-01-28] VITALS (43 sets, daily range): BP systolic 82–163; BP diastolic 40–98; PULSE 60–73; RESP 12–20; TEMP 36–36.8; O2SAT 93–100; BMI 40.1
[2024-01-28 03:16] LABS: Partial Thromboplastin Time 185.2 Seconds (22.3-36.8)
[2024-01-28] MEDS: HYDROcodone/acetaminophen (*CRX) 5-325 MG TABLET 1 TAB PO ×3 (04:31→21:06)
[2024-01-28 08:19] LABS: Glucose Point of Care 101 mg/dl (65-105); Glucose Point of Care 103 mg/dl (65-105)
[2024-01-28] MEDS: METOPROLOL SUCCINATE EXT REL 25 MG TABCR PO (08:19)
[2024-01-28] MEDS: SERTRALINE HCL 50 MG TABLET 150 MG PO (08:19)
[2024-01-28] MEDS: ATORVASTATIN 40 MG TABLET PO (08:20)
[2024-01-28] MEDS: PANTOPRAZOLE 40 MG TABLET PO (08:20)
[2024-01-28] MEDS: ASPIRIN 81 MG ENTERIC TABLET PO (08:20)
--- NOTE | 2024-01-28 09:38 | PM.IMPN ---
Progress Note: A&P Assessment and Plan (1) NSTEMI (non-ST elevated myocardial infarction): Code(s): I21.4 - Non-ST elevation (NSTEMI) myocardial infarction Status: Acute (2) SVT (supraventricular tachycardia): Code(s): I47.10 - Supraventricular tachycardia, unspecified Status: Acute (3) HTN (hypertension): Code(s): I10 - Essential (primary) hypertension Status: Acute (4) Diabetes: Code(s): E11.9 - Type 2 diabetes mellitus without complications Status: Acute (5) Tobacco abuse: Code(s): Z72.0 - Tobacco use Status: Acute Plan (1) SVT (supraventricular tachycardia): ?Code(s): I47.10 - Supraventricular tachycardia, unspecified ?Status:?Acute ?Assessment and Plan: - EKG, initial:? Sinus rhythm, ST-T-wave abnormality in anterolateral leads and high lateral leads consider ischemia, abnormal EKG.? When compared to EKG done on 08/29/2020, ST-T-wave abnormality now present. - cardiology consulted, Karen ASTUDILLO. Provided the following recs: Start metoprolol XL 25 mg daily for suppression Referral for electrophysiology outpatient for possible ablation or antiarrhythmic therapy Check TSH Check echo ApneaLink overnight to screen for DEEDEE Continue telemetry - started on heparin gtt - echo, 01/26 LV normal dimension, mildly increased ventricular wall thickness, systolic function hyperdynamic, estimated EF >70% LV diastolic dysfunction grade 2 AV not well visualized No AV stenosis or regurgitation Trace MV regurgitation and annulus moderately calcified Trace TV regurgitation No pulmonary hypertension - no previous stress test on file - telemetry monitoring (2) NSTEMI (non-ST elevated myocardial infarction): ?Code(s): I21.4 - Non-ST elevation (NSTEMI) myocardial infarction ?Status:?Acute ?Assessment and Plan: - EKG, initial:? Sinus rhythm, ST-T-wave abnormality in anterolateral leads and high lateral leads consider ischemia, abnormal EKG.? When compared to EKG done on 08/29/2020, ST-T-wave abnormality now present. - EKG, repeat (1):? Sinus rhythm, LV hypertrophy with ST-T change.? When compared to EKG done earlier today, there are no significant changes. - EKG, repeat (2):? Sinus rhythm, LV hypertrophy with ST-T change, borderline ST abnormality anterior leads. - CXR:? No active cardiopulmonary disease - Troponin: 0.214 -> 0.812 -> 1.720, repeat in AM - ASA given in ED, started on heparin - SL nitro PRN - cardiology consulted, Karen ASTUDILLO. Provided the following recs: Demand ischemia verses underlying obstructive CAD Continue management for SVT and CAD Resume atorvastatin 40 mg, ASA daily, continue heparin gtt Review echo Further recommendations based off of troponin trend, patient's symptoms, EKG, and echo - started on heparin gtt - lipid panel ordered, continued atorvastatin 40 mg - see echo results above - NPO at midnight - telemetry monitoring echo revealed ? 1. Technically difficult study with limited views.? Definity contrast enhancement administered. ? 2. Left ventricular chamber dimension is normal. ? 3. Left ventricular systolic function is hyperdynamic, estimated at >70%. ? 4. There is mildly increased left ventricular wall thickness. ? 5. The left ventricular diastolic function is grade II diastolic dysfunction. ? 6. The aortic valve is not well visualized. ? 7. There is no aortic valve stenosis. ? 8. There is no aortic valve regurgitation. ? 9. There is trace mitral valve regurgitation. ? 10. The mitral valve annulus is moderately calcified. ? 11. There is trace tricuspid valve regurgitation. ? 12. No pulmonary hypertension, estimated pulmonary arterial systolic pressure is 16 mmHg. Patient cardiology consultation, plans cardiac catheterization a.m. tomorrow 01/27: Cardiac catheterization revealed patent coronary arteries, normal left heart function. (3) Diabetes: ?Code(s): E11.9 - Type 2 diabetes mellitus without
[2024-01-28] MEDS: traMADol HCL (*CRX) 50 MG TABLET PO ×2 (10:02→17:24)
[2024-01-28 10:03] LABS: Basophils Absolute Auto 0.1 K/mm3 (0.0-0.1); Basophils Percent Auto 0.6 % (0.2-1.2); Eosinophils Absolute Auto 0.4 K/mm3 (0-0.3); Eosinophils Percent Auto 3.6 % (0-4.4); Hematocrit 43.9 % (37.0-47.0); Hemoglobin 14.3 g/dL (12.0-15.0); Immature Granulocyte Absolute 0.03 K/mm3 (0.00-0.031); Immature Granulocyte Percent A 0.3 % (0-0.5); Lymphocytes Absolute Auto 2.86 K/mm3 (0.9-3.2); Lymphocytes Percent Auto 29.6 % (18.3-44.2); Mean Corpuscular HGB Conc 32.6 g/dl (32-36); Mean Corpuscular Hemoglobin 29.9 pg (26-34); Mean Corpuscular Volume 91.6 fl (80-100); Mean Platelet Volume 10.6 fl (7.4-10.4); Monocytes Absolute Auto 0.7 K/mm3 (0.1-0.6); Monocytes Percent Auto 7.7 % (2.6-8.5); Neutrophils Absolute Auto 5.6 K/mm3 (1.3-6.7); Neutrophils Percent Auto 58.2 % (45.5-73.1); Platelet Count Result 206 k/mm3 (150-375); Red Blood Count 4.79 M/mm3 (4.2-5.4); Red Cell Distribution Width 12.6 % (11.5-14.5); White Blood Count 9.7 K/mm3 (4.5-10.0)
[2024-01-28 10:14] LABS: Anion Gap 5 mmol/L (4-12); Blood Urea Nitrogen 18 mg/dL (7-17); Calcium 9.6 mg/dL (8.4-10.2); Carbon Dioxide 29 mmol/L (22-30); Chloride 104 mmol/L (98-107); Estimated CRCL calculation 81 ml/min; Estimated Glomerular Filt Rate > 60; Glucose 114 mg/dL (65-110); Sodium 138 mmol/L (137-145)
[2024-01-28 10:14] LABS: Partial Thromboplastin Time 151.1 Seconds (22.3-36.8)
--- NOTE | 2024-01-28 10:55 | WPDMODSED ---
Moderate Sedation Note-Pt Data Patient Data Diagnosis: Supraventricular tachycardia Elevation of troponin/chest pain Present Complaint: No complete Procedure to be performed/Plan: Left heart catheterization Allergies Allergy/AdvReac Type Severity Reaction Status Date / Time codeine Allergy Unknown Unknown Verified 01/26/24 07:13 Home Medications Medication Instructions Recorded Confirmed Type insulin lispro protamine-lispro 54 unit subcut BID 08/29/20 01/26/24 History 100 unit/mL (75-25) subcutaneous pen (Humalog Mix 75-25 KwikPen) sertraline 100 mg tablet 150 mg PO DAILY 08/29/20 01/26/24 History atorvastatin 40 mg tablet 40 mg PO DAILY 01/26/24 01/26/24 History celecoxib 200 mg capsule 200 mg PO DAILY 01/26/24 01/26/24 History semaglutide 0.25 mg or 0.5 mg (2 0.5 mg subcut WEEKLY 01/26/24 01/26/24 History mg/3 mL) subcutaneous pen injector (Ozempic) tramadol 50 mg tablet 50 mg PO Q6H PRN Pain 01/26/24 01/26/24 History Current Medications: Active Medications Hydrocodone Bitart/Acetaminophen (Hydrocodone/Acetaminophen (*Crx) 5-325 Mg Tablet) 1 tab PO Q6H PRN PRN Reason: Pain Rated 4-6 Last Admin: 01/28/24 04:31 Dose: 1 tab Aspirin (Aspirin 81 Mg Enteric Tablet) 81 mg PO QAM [facility] Last Admin: 01/28/24 08:20 Dose: 81 mg Atorvastatin Calcium (Atorvastatin 40 Mg Tablet) 40 mg PO DAILY [facility] Last Admin: 01/28/24 08:20 Dose: 40 mg Dextrose (Dextrose 50% 25 Gm/50 Ml Syringe) 12.5 gm IV PUSH PRN PRN; Protocol PRN Reason: Hypoglycemia Glucagon (Glucagon For Inj 1 Mg Vial) 1 mg IM PRN PRN; Protocol PRN Reason: Hypoglycemia Glucose (Glucose Oral Gel 15 Gm Of Glucse In 37.5 Gm Tube) 15 gm PO PRN PRN; Protocol PRN Reason: Hypoglycemia Heparin Sodium (Porcine) (Heparin Sodium 5,000 Units/Ml Vial) 4,000 units IV PUSH PRN PRN PRN Reason: aPTT less than 55 seconds Last Admin: 01/26/24 15:39 Dose: 4,000 units Heparin Sodium (Porcine) (Heparin Sodium 5,000 Units/Ml Vial) 3,000 units IV PUSH PRN PRN PRN Reason: aPTT 55 - 70 seconds Last Admin: 01/27/24 19:30 Dose: 3,000 units Heparin Sodium/Dextrose (Heparin Sodium/D5w 100 Units/Ml) 25,000 units in 250 mls @ 13 mls/hr IV CONT .[id number] [facility]; Protocol Last Titration: 01/28/24 04:17 Dose: 1,300 units/hr, 13 mls/hr Dextrose (Dextrose 5% 1,000 Ml) 1,000 mls @ 100 mls/hr IVPB PRN PRN; Protocol PRN Reason: Hypoglycemia Insulin Aspart (Insulin Aspart (*Bkc) 100 Units/Ml) 4 - 8 units SUB-Q TIDWM [facility]; Protocol Last Admin: 01/28/24 08:14 Dose: Not Given Insulin Aspart (Insulin Aspart (*Bkc) 100 Units/Ml) 2 - 4 units SUB-Q HS [facility]; Protocol Last Admin: 01/27/24 20:47 Dose: 2 units Insulin Glargine (Insulin Glargine (*Bkc) 100 Units/Ml) 23 units 0.2 units/kg (23 units) SUB-Q HS [facility] Last Admin: 01/27/24 20:53 Dose: 23 units Insulin Human Isoph/Insulin Regular (Insulin Human Isophan/Regular 70/30 (*Bkc) 100 Units/Ml) 43 units SUB-Q BID [facility] Last Admin: 01/28/24 08:20 Dose: Not Given Melatonin (Melatonin 3 Mg Tablet) 3 mg PO [facility] Last Admin: 01/27/24 20:50 Dose: 3 mg Metoprolol Succinate (Metoprolol Succinate Ext Rel 25 Mg Tabcr) [facility] [place] Admin: 01/28/24 08:19 Dose: 25 mg Nitroglycerin (Nitroglycerin Sl 0.4 Mg Tablet) 0.4 mg SUBLINGUAL Q5MIN PRN PRN Reason: Chest Pain Pantoprazole Sodium (Pantoprazole 40 Mg Tablet) 40 mg PO QAM [facility] Last Admin: 01/28/24 08:20 Dose: 40 mg Sertraline HCl (Sertraline Hcl 50 Mg Tablet) 150 mg PO DAILY [facility] Last Admin: 01/28/24 08:19 Dose: 150 mg Tramadol HCl (Tramadol Hcl (*Crx) 50 Mg Tablet) 50 mg PO Q6H PRN PRN Reason: Pain Rated 4-6 Last Admin: 01/28/24 10:02 Dose: 50 mg Sedation/Anesthesia: No previous sedation/anesthesia problems (including family history). PMFSH Past Medical History Medical History (Updated 01/26/24 @ 16:[address] MD) Diabetes HTN (hypertension) not currently on medications Insomnia Major depressive disorder, sin
--- NOTE | 2024-01-28 11:59 | WPDCARDPROC ---
Cardiac Cath Procedure Note Date of procedure:: 01/28/24 Performing physician:: Salvador Álvarez MD Indication:: supraventricular tachycardia troponin elevation following episode of SVT Brief clinical history:: this is a 64-year-old woman without any history of coronary disease. She apparently was brought to the hospital with the weekend with an episode of SVT with very rapid heart rate. Following conversion to sinus rhythm she improved clinically but she did have a moderate troponin rise raising concern as to the possibility of concurrent coronary artery disease. For this reason an angiogram has been recommended. Procedure Procedure performed:: Left ventriculogram coronary angiography Sedation/Medication given:: fentanyl 50 mg Versed 2 mg case start time 11:29 a.m. case end time 11:55 a.m. sedation provided by Erin Najera RN, trained observer Access site:: right femoral artery Estimated blood loss:: 20 cc Procedure note:: patient was brought to the cardiac catheterization lab in the postabsorptive state where the right femoral triangle was prepared and draped in the normal fashion. Anesthesia was provided with 1% lidocaine infiltrated locally. Using the modified Seldinger technique a 5 Kazakh sheath was placed into the right femoral artery after this left heart catheterization was carried out. I used a 5 Kazakh angled pigtail catheter to measure left-sided hemodynamics and to inject the left ventriculogram in the STEPHEN projection. After this I used a 5 Kazakh FL4 catheter to engage inject the left coronary artery and then a 5 Kazakh AL1 catheter to inject the right coronary artery. During catheter exchanges it was noted there was some tortuosity in the right iliac artery. I had to use a Ronnie wire for re cross this segment and all the catheter exchanges were made in the central aorta over the long exchange wire. 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 Following this patient was taken to the holding area for sheath removal. I elected not to deploy an Angio-Seal device because of tortuosity in the iliac artery as described above. Procedure was well tolerated and uncomplicated. She had no sign of groin hematoma upon leaving the cardiac catheterization lab. Findings:: Hemodynamics: Central aortic pressure is 130 over 46 left ventricle 130/0 end-diastolic pressure 8 . There appears to be approximately 15 mm systolic gradient across the aortic valve. Left ventricle: The LV is normal in size and contracts vigorously in all segments the global ejection fraction of visually estimated to be 70%. There no regional wall motion abnormalities. The left main coronary artery is nicely patent the left anterior descending is a medium caliber extends down to around the apex providing a significant amount of inferior perfusion as well. The LAD is extremely tortuous but otherwise is free of disease. Circumflex is a moderate caliber giving rise to the marginal branches as well as the posterior branches and the left PDA. The circumflex is dominant to the posterior circulation and Has approximately 20% stenosis in the mid trunk of the circumflex between the 1st and 2nd marginal branches. 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 It gives rise to 2 right ventricular branches and angiographically is otherwise unremarkable. Conclusion:: 1. Left coronary dominant circulation with no angiographically significant coronary disease, minimal plaquing was seen in the trunk of the circumflex in the midportion as described above. 2. 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 vigorous left ventricular systolic function with about 15 mm transaortic valvular gradient Salvador Álvarez MD [facility]
[2024-01-28 14:10] LABS: Partial Thromboplastin Time 53.7 Seconds (22.3-36.8)
[2024-01-28] MEDS: fentaNYL CITRATE INJ (*CRX) 100 MCG/2 ML VIAL 25 MCG IV PUSH (14:43)
[2024-01-28] MEDS: SODIUM CHLORIDE 0.9% IV 1,000 ML 125 ML IV CONT (15:38)
[2024-01-28] MEDS: INSULIN HUMAN ISOPHAN/REGULAR 70/30 (*BKC) 100 UNITS/ML 43 UNITS SUB-Q (17:19)
[2024-01-28 17:24] LABS: Glucose Point of Care 149 mg/dl (65-105)
[2024-01-28] MEDS: MELATONIN 3 MG TABLET PO (21:06)
[2024-01-28 21:13] LABS: Glucose Point of Care 216 mg/dl (65-105)
[2024-01-29] VITALS (11 sets, daily range): BP systolic 109–143; BP diastolic 55–63; PULSE 60–71; RESP 16–18; TEMP 36.3–36.6; O2SAT 94–100
[2024-01-29] MEDS: INSULIN GLARGINE (*BKC) 100 UNITS/ML 23 UNITS SUB-Q (00:30)
[2024-01-29 05:13] LABS: Basophils Absolute Auto 0.1 K/mm3 (0.0-0.1); Basophils Percent Auto 0.6 % (0.2-1.2); Eosinophils Absolute Auto 0.3 K/mm3 (0-0.3); Eosinophils Percent Auto 3.1 % (0-4.4); Hematocrit 41.8 % (37.0-47.0); Hemoglobin 13.1 g/dL (12.0-15.0); Immature Granulocyte Absolute 0.02 K/mm3 (0.00-0.031); Immature Granulocyte Percent A 0.3 % (0-0.5); Lymphocytes Absolute Auto 2.32 K/mm3 (0.9-3.2); Lymphocytes Percent Auto 29.1 % (18.3-44.2); Mean Corpuscular HGB Conc 31.3 g/dl (32-36); Mean Corpuscular Hemoglobin 29.6 pg (26-34); Mean Corpuscular Volume 94.4 fl (80-100); Mean Platelet Volume 10.7 fl (7.4-10.4); Monocytes Absolute Auto 0.7 K/mm3 (0.1-0.6); Monocytes Percent Auto 9.3 % (2.6-8.5); Neutrophils Absolute Auto 4.6 K/mm3 (1.3-6.7); Neutrophils Percent Auto 57.6 % (45.5-73.1); Platelet Count Result 177 k/mm3 (150-375); Red Blood Count 4.43 M/mm3 (4.2-5.4); Red Cell Distribution Width 12.6 % (11.5-14.5)
[2024-01-29 06:00] LABS: Anion Gap 4 mmol/L (4-12); Blood Urea Nitrogen 16 mg/dL (7-17); Calcium 8.7 mg/dL (8.4-10.2); Carbon Dioxide 26 mmol/L (22-30); Chloride 108 mmol/L (98-107); Estimated CRCL calculation 93 ml/min; Estimated Glomerular Filt Rate > 60; Glucose 143 mg/dL (65-110); Sodium 138 mmol/L (137-145)
[2024-01-29 08:31] LABS: Glucose Point of Care 119 mg/dl (65-105)
--- NOTE | 2024-01-29 09:29 | PM.PNCARD ---
Progress Note: A&P Assessment and Plan (1) NSTEMI (non-ST elevated myocardial infarction): Code(s): I21.4 - Non-ST elevation (NSTEMI) myocardial infarction Status: Acute Assessment and Plan: Patient presents with chest discomfort in the setting of 1 hour sustained very rapid presumed SVT 249 beats per minute. Underwent ischemic evaluation yesterday with coronary angiogram what revealed no angiographically significant CAD and normal LV systolic function. (2) SVT (supraventricular tachycardia): Code(s): I47.10 - Supraventricular tachycardia, unspecified Status: Acute Assessment and Plan: Documentation of arrhythmia presentation is not available unfortunately. Given description of rapid arrhythmia terminated with Valsalva 249 beats per minute SVT highly likely. Unfortunately this cannot be confirmed at present but patient reports a longstanding history of intermittent SVT as well terminated with adenosine. Currently in sinus rhythm. -Toprol XL 25 mg daily for suppression. -Discussed referral to electrophysiology as an outpatient as he services are not available at this institution to consider ablation and antiarrhythmic therapy as appropriate. -Echo showed normal LVSF, grade II diastolic dysfunction, no significant valvular abnormalities. -AHI 28 on apnea link. Outpatient sleep study (3) HTN (hypertension): Code(s): I10 - Essential (primary) hypertension Status: Acute Assessment and Plan: Continue Toprol XL 25mg daily, added losartan 25mg. Further adjustments can be made as an outpatient as needed. (4) Diabetes: Code(s): E11.9 - Type 2 diabetes mellitus without complications Status: Acute Assessment and Plan: Management per primary service. (5) Tobacco abuse: Code(s): Z72.0 - Tobacco use Status: Acute Assessment and Plan: Smoking cessation counseling performed. Patient verbalized understanding and agreed. Plan OK for discharge today from a cardiac perspective. Subjective Date/time seen: 01/29/24 09:29 Interval history: Follow-up for SVT, elevated troponin, chest pain Patient feels better this morning. Still somewhat fatigued but no chest pain, palpitation. No recurrent SVT on telemetry overnight. Breathing stable. Date of service 01/29/2024: Feeling well this morning. No chest pain or shortness of breath. Thinks she felt a brief period of palpitations last night. Review of Systems Review of Systems: Remainder of the review of systems is otherwise negative aside from that noted in the HPI. All systems reviewed & are unremarkable except as noted in HPI and below Constitutional: Constitutional: Reports as per HPI and Reports no additional constitutional complaints Eyes: Eyes: Reports as per HPI and Reports no additional eye complaints ENT: Reports system reviewed and no additional complaints, except as documented and Reports as per HPI Cardiovascular: Cardiovascular: Reports as per HPI and Reports no additional cardiovascular complaints Respiratory: Respiratory: Reports as per HPI and Reports no additional respiratory complaints Gastrointestinal: Gastrointestinal: Reports as per HPI and Reports no additional gastrointestinal complaints Genitourinary: Genitourinary: Reports as per HPI Musculoskeletal: Musculoskeletal: Reports no additional musculoskeletal complaints and Reports as per HPI Integumentary/Breasts: Skin/Breast: Reports system reviewed and no additional complaints, except as docu and Reports as per HPI Neurologic: Reports system reviewed and no additional complaints, except as documented and Reports as per HPI Psychiatric: Psychiatric: Reports no additional psychiatric complaints and Reports as per HPI Endocrine: Endocrine: Reports no additional endocrine complaints and Reports as per HPI Hematologic/Lymphatic: Hematologic/Lymphatic: Reports no additional hematologic/lymphatic complaints and Rep
[2024-01-29] MEDS: METOPROLOL SUCCINATE EXT REL 25 MG TABCR PO (09:38)
[2024-01-29] MEDS: ATORVASTATIN 40 MG TABLET PO (09:39)
[2024-01-29] MEDS: SERTRALINE HCL 50 MG TABLET 150 MG PO (09:39)
[2024-01-29] MEDS: PANTOPRAZOLE 40 MG TABLET PO (09:39)
[2024-01-29] MEDS: INSULIN HUMAN ISOPHAN/REGULAR 70/30 (*BKC) 100 UNITS/ML 43 UNITS SUB-Q (09:40)
[2024-01-29] MEDS: ASPIRIN 81 MG ENTERIC TABLET PO (09:40)
--- NOTE | 2024-01-29 10:25 | PM.IMPN ---
Progress Note: A&P Assessment and Plan (1) NSTEMI (non-ST elevated myocardial infarction): Code(s): I21.4 - Non-ST elevation (NSTEMI) myocardial infarction Status: Acute (2) SVT (supraventricular tachycardia): Code(s): I47.10 - Supraventricular tachycardia, unspecified Status: Acute (3) HTN (hypertension): Code(s): I10 - Essential (primary) hypertension Status: Acute (4) Diabetes: Code(s): E11.9 - Type 2 diabetes mellitus without complications Status: Acute (5) Tobacco abuse: Code(s): Z72.0 - Tobacco use Status: Acute Plan SVT (supraventricular tachycardia): ?Code(s): I47.10 - Supraventricular tachycardia, unspecified ?Status:?Acute ?Assessment and Plan: - EKG, initial:? Sinus rhythm, ST-T-wave abnormality in anterolateral leads and high lateral leads consider ischemia, abnormal EKG.? When compared to EKG done on 08/29/2020, ST-T-wave abnormality now present. - cardiology consulted, Karen ASTUDILLO. Provided the following recs: Start metoprolol XL 25 mg daily for suppression Referral for electrophysiology outpatient for possible ablation or antiarrhythmic therapy Check TSH Check echo ApneaLink overnight to screen for DEEDEE Continue telemetry - started on heparin gtt - echo, 01/26 LV normal dimension, mildly increased ventricular wall thickness, systolic function hyperdynamic, estimated EF >70% LV diastolic dysfunction grade 2 AV not well visualized No AV stenosis or regurgitation Trace MV regurgitation and annulus moderately calcified Trace TV regurgitation No pulmonary hypertension - no previous stress test on file - telemetry monitoring 01/28: Continue Toprol XL 25mg daily, added losartan 25mg.? Further adjustments can be made as an outpatient as needed per software testing specialist NSTEMI (non-ST elevated myocardial infarction): ?Code(s): I21.4 - Non-ST elevation (NSTEMI) myocardial infarction ?Status:?Acute ?Assessment and Plan: - EKG, initial:? Sinus rhythm, ST-T-wave abnormality in anterolateral leads and high lateral leads consider ischemia, abnormal EKG.? When compared to EKG done on 08/29/2020, ST-T-wave abnormality now present. - EKG, repeat (1):? Sinus rhythm, LV hypertrophy with ST-T change.? When compared to EKG done earlier today, there are no significant changes. - EKG, repeat (2):? Sinus rhythm, LV hypertrophy with ST-T change, borderline ST abnormality anterior leads. - CXR:? No active cardiopulmonary disease - Troponin: 0.214 -> 0.812 -> 1.720, repeat in AM - ASA given in ED, started on heparin - SL nitro PRN - cardiology consulted, Karen ASTUDILLO. Provided the following recs: Demand ischemia verses underlying obstructive CAD Continue management for SVT and CAD Resume atorvastatin 40 mg, ASA daily, continue heparin gtt Review echo Further recommendations based off of troponin trend, patient's symptoms, EKG, and echo - started on heparin gtt - lipid panel ordered, continued atorvastatin 40 mg - see echo results above - NPO at midnight - telemetry monitoring echo revealed ? 1. Technically difficult study with limited views.? Definity contrast enhancement administered. ? 2. Left ventricular chamber dimension is normal. ? 3. Left ventricular systolic function is hyperdynamic, estimated at >70%. ? 4. There is mildly increased left ventricular wall thickness. ? 5. The left ventricular diastolic function is grade II diastolic dysfunction. ? 6. The aortic valve is not well visualized. ? 7. There is no aortic valve stenosis. ? 8. There is no aortic valve regurgitation. ? 9. There is trace mitral valve regurgitation. ? 10. The mitral valve annulus is moderately calcified. ? 11. There is trace tricuspid valve regurgitation. ? 12. No pulmonary hypertension, estimated pulmonary arterial systolic pressure is 16 mmHg. Patient cardiology consultation, plans cardiac catheterization a.m. tomorrow 01/27: Cardiac catheterization revealed
--- NOTE | 2024-01-29 10:27 | PM.DS ---
DS: Admitting Diagnosis Discharge Date 01/28 Admitting Diagnosis (1) NSTEMI (non-ST elevated myocardial infarction): ?Code(s): I21.4 - Non-ST elevation (NSTEMI) myocardial infarction ?Status:?Acute (2) SVT (supraventricular tachycardia): ?Code(s): I47.10 - Supraventricular tachycardia, unspecified ?Status:?Acute (3) HTN (hypertension): ?Code(s): I10 - Essential (primary) hypertension ?Status:?Acute (4) Diabetes: ?Code(s): E11.9 - Type 2 diabetes mellitus without complications ?Status:?Acute (5) Tobacco abuse: ?Code(s): Z72.0 - Tobacco use ?Status:?Acute DS: Discharge Diagnosis Discharge Diagnosis (1) NSTEMI (non-ST elevated myocardial infarction): Code(s): I21.4 - Non-ST elevation (NSTEMI) myocardial infarction Status: Acute (2) SVT (supraventricular tachycardia): Code(s): I47.10 - Supraventricular tachycardia, unspecified Status: Acute (3) HTN (hypertension): Code(s): I10 - Essential (primary) hypertension Status: Acute (4) Diabetes: Code(s): E11.9 - Type 2 diabetes mellitus without complications Status: Acute (5) Tobacco abuse: Code(s): Z72.0 - Tobacco use Status: Acute DS: Summary Hospital Course Hospital Course: Per H&P, ' 64 y/o F presents here with chest pain, nausea, and vomiting with PMH of intermittent SVT, DM, depression, tobacco use, HLD, obesity, and HTN. Patient presents here with chest pain, nausea, vomiting, and GERD-like symptoms. Patient woke this morning around [id number] with palpitations/heart racing. Experienced associated chest discomfort, nausea, diarrhea, and general malaise. Patient initially was coming by private vehicle but had to turn around and go back home due to diarrhea and vomiting. EMS was then called. Upon their arrival, patient's HR was found to be in the 240's and appeared as SVT on their monitor. EMS helped patient to perform a Valsalva maneuver (bearing down) and patient was able to convert back in NSR.? Symptoms lasted for approximately 1 hour in total.? Patient has history of SVT with 1st episode when she was 20 years old and last long episode was 15 years ago.? Had 5 year stretch where it was occurring yearly and had to be seen in the ED where ? she was treated with adenosine IV.? Has had some short lived episodes of palpitations, would last more or less around 30 seconds, and would resolve spontaneously. 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 Caffeine intake is approximated around 4 cups of coffee daily and 1 can of diet caffeinated soda. No prescription stimulants. No drug use. Currently reporting fatigue, typically feels tired after her SVT episodes and from getting up so early. No recurrent or current chest pain, SOB, or pain that is a deviation from her baseline. Initial VS at presentation: 97.1 F, HR 92, RR 16, 147/79, and 98% on RA. ED workup showed: no leukocytosis, no anemia, creatinine 0.7, and glucose 261.? CXR showed no active cardiopulmonary disease.? EKG showed sinus rhythm, ST T-wave abnormality in anterolateral/high rates consider ischemia.? When compared to EKG done on 08/29/2020, ST-T-wave abnormalities not present. The following med issues have been addressed during hospitalization SVT (supraventricular tachycardia): ?Code(s): I47.10 - Supraventricular tachycardia, unspecified ?Status:?Acute ?Assessment and Plan: - EKG, initial:? Sinus rhythm, ST-T-wave abnormality in anterolateral leads and high lateral leads consider ischemia, abnormal EKG.? When compared to EKG done on 08/29/2020, ST-T-wave abnormality now present. - cardiology consulted, Karen ASTUDILLO. Provided the following recs: Start metoprolol XL 25 mg daily for suppression Referral for electrophysiology outpatient for possible ablation or antiarrhythmic therapy Check TSH Check echo ApneaLink overnight to screen for DEEDEE Continue telemetry - started on heparin gtt - echo
[2024-01-29] MEDS: MAG HYDROX/AL HYDROX/SIMETH 30 ML UDC PO (10:44)
[2024-01-31 11:46] LABS: Activated Clotting Time 168 SEC (74-137)
[2024-01-31 11:46] LABS: Activated Clotting Time 152 SEC (74-137)
[2024-01-31 11:46] LABS: Activated Clotting Time 141 SEC (74-137)
== END 2024-01-29 11:45 | disposition home or self-care (01) | DRG 281 ==
LOC: ANHED 08:28 → ANHIMU 10:35
PROVIDERS: Internal Medicine Cardiovascular Disease; Specialist; Student in an Organized Health Care Education/Training Program; Admitting Provider Internal Medicine; Emergency Provider Emergency Medicine; PCP Internal Medicine; Visit Provider Hospitalist
PROC: 4A023N7 Measurement of Cardiac Sampling and Pressure, Left Heart, Percutaneous Approach (ICD-10-PCS; CPT 93452; principal; 2024-01-28 10:00)
DX: I47.10 Supraventricular tachycardia, unspecified (principal); Z68.41 Body mass index [BMI] 40.0-44.9, adult; I21.4 Non-ST elevation (NSTEMI) myocardial infarction; I25.10 Atherosclerotic heart disease of native coronary artery without angina pectoris; E11.9 Type 2 diabetes mellitus without complications; I10 Essential (primary) hypertension; E78.5 Hyperlipidemia, unspecified; E66.9 Obesity, unspecified; F32.A Depression, unspecified; M15.9 Polyosteoarthritis, unspecified; F17.210 Nicotine dependence, cigarettes, uncomplicated
CPT/HCPCS: 36415; 71046; 80048; 80053; 80061; 82948; 83036; 83690; 84443; 84484; 85025; 85610; 85730; 87637; 93005; 93458; 94762; 96374; 99285; A9270; C1769; C1887; C1894; C8929; J1644; J1815; J2405; J3010; J7030; Q9957